=== PATIENT | male | born 1975 | race Caucasian/White ===

== ENCOUNTER → 2019-12-06 | Outpatient (CLI) | payer OTHER ==
[2019-12-06 11:37] LABS: PV SEMEN COLOR STRAW; PV SEMEN LIQUEFACTION 30 MINUTES (<61); PV SEMEN PH 7.9 (>7.1); PV SEMEN VISCOSITY LOW (NORMAL); PV VOLUME 6.5 mL (>1.4)
[2019-12-06 11:39] LABS: PV NONMOTILE COUNT1 0; PV NONMOTILE COUNT2 0; PV STRAIGHT MOTILITY CNT 1 0; PV STRAIGHT MOTILITY CNT 2 0
[2019-12-06 11:40] LABS: PV ROUND CELL COUNT1 0; PV ROUND CELL COUNT2 0
== END ==
LOC: LAB 08:53
PROVIDERS: ATTEND Urology
DX: Z30.2 Encounter for sterilization (principal)
CPT/HCPCS: 89321